=== PATIENT | female | born 1935 | race Caucasian/White ===

== ENCOUNTER 2020-05-24 15:26 | Inpatient (IN) ==
[2020-05-24] MEDS ORDERED: methylPREDNISolone SOD SUC 125 MG/2 ML VIAL IV STA (16:22)
[2020-05-24] MEDS ORDERED: ONDANSETRON 4 MG/2 ML VIAL IV STA (16:22)
[2020-05-24] MEDS ORDERED: FUROSEMIDE 40 MG/4 ML VIAL IV STA (16:22)
[2020-05-24] MEDS ORDERED: PIPERACILLIN/TAZOBACTAM 3,375 MG in SODIUM CHLORIDE 0.9% 100 ML IV STA (16:22)
[2020-05-24 17:09] LABS: Basophils % 0.5 % (0.0-0.8); Eosinophils # 0.1 10*3/uL (0.0-0.87); Eosinophils % 0.7 % (0.00-10.9); Hematocrit 26.8 VOL% (35.7-47.0); Immature Granulocytes % 0.6 %; Immature Granulocytes Absolute 0.05 #; Lymphocytes # 1.1 10*3/uL (1.4-4.0); Lymphocytes % 13.2 % (21.3-54.2); Mean Corpuscular HGB Conc 27.2 GM/DL (32-36); Mean Corpuscular Volume 76.4 FL (87-102); Mean Platelet Volume 10.4 FL (9.6-12.0); Monocytes % 6.5 % (1.7-12.7); Neutrophils % 78.5 % (38.7-73.9); Platelet Count 344 T/CUMM (130-400); Red Blood Count 3.51 MC/CUMM (3.8-5.5); Red Cell Distribution Width 17.4 % (9.3-17.3); White Blood Count 8.5 T/CUMM (4-12)
[2020-05-24 17:12] LABS: Bacteria,Urine Occasional /HPF (Few); Bilirubin,Urine Negative (Negative); Blood, Urine Negative (Negative); Glucose,Urine (UA) Negative (Negative); Ketones,Urine 5 mg/dL (Negative); Mucus,Urine Occasional /LPF (Occasional); Nitrite,Urine Negative (Negative); Protein,Urine Negative; RBC,Urine 3 /HPF (0-4); Squamous Epithelial Cell,Urine Occasional /HPF (0-10); Urine Appearance CLEAR (Clear); Urine Color Yellow (Yellow); Urine Specific Gravity 1.025 (1.001-1.035); WBC,Urine 1 /HPF (0-6)
[2020-05-24 17:18] LABS: Hemoglobin 7.3 GM/DL (12.0-16.0)
[2020-05-24 17:19] LABS: PT Patient Result 10.5 SECS (9.8-11.9)
[2020-05-24 17:53] LABS: Albumin 2.9 G/DL (3.4-5.0); Bilirubin,Total 0.4 MG/DL (0.2-1.0); Calcium 7.8 MG/DL (8.5-10.1); Osmolality,Calculated 275.7 MOS/KG (273-304); Potassium 3.3 MMOL/L (3.5-5.1); Total Protein 5.8 G/DL (6.4-8.3)
[2020-05-24] MEDS ORDERED: DEXTROSE 50% 25 GM/50 ML VIAL IV PRN (19:56)
[2020-05-24] MEDS ORDERED: GLUCAGON 1 MG VIAL IM PRN (19:56)
[2020-05-24] MEDS ORDERED: POTASSIUM CHLORIDE 20 MEQ/15 ML UDCUP PO ONE (20:03)
[2020-05-24 20:55] LABS: ABG Base Excess 16.3 MMOL/L (-2.5-2.5); ABG HCO3 40.2 MMOL/L (20-26); ABG Oxygen Saturation 95.7 % (95-100); ABG PCO2 62.1 MM HG (35-48); ABG PH 7.447 (7.35-7.45); ABG PO2 81.9 MM HG (80-95); Allen Test Positive
[2020-05-25] MEDS: PIPERACILLIN/TAZOBACTAM 3,375 MG in SODIUM CHLORIDE 0.9% 100 ML IV SCH ×2 (01:09→11:00)
[2020-05-25 06:31] LABS: % Iron Saturation 2.6 % (18-50); Albumin 2.9 G/DL (3.4-5.0); Bilirubin,Total 0.4 MG/DL (0.2-1.0); Calcium 7.9 MG/DL (8.5-10.1); Ferritin 7.4 ng/ml (8-252); Potassium 3.4 MMOL/L (3.5-5.1); Risk Ratio 1.61; Thyroid Stimulating Hormone 0.186 uIU/ml (0.358-3.74); Total Protein 6.2 G/DL (6.4-8.3); VLDL CHOLESTEROL 11.8 MG/DL
[2020-05-25 07:33] LABS: Basophils % 0.2 % (0.0-0.8); Hematocrit 29.7 VOL% (35.7-47.0); Hemoglobin 7.6 GM/DL (12.0-16.0); Immature Granulocytes % 0.8 %; Immature Granulocytes Absolute 0.04 #; Lymphocytes # 0.9 10*3/uL (1.4-4.0); Lymphocytes % 18.6 % (21.3-54.2); Mean Corpuscular HGB Conc 25.6 GM/DL (32-36); Mean Corpuscular Volume 80.3 FL (87-102); Mean Platelet Volume 11.6 FL (9.6-12.0); Monocytes % 2.9 % (1.7-12.7); Neutrophils % 77.5 % (38.7-73.9); Platelet Count 350 T/CUMM (130-400); Red Cell Distribution Width 17.4 % (9.3-17.3); White Blood Count 4.9 T/CUMM (4-12)
[2020-05-25 07:41] LABS: Hypochromasia 2+; Microcytosis 1+; Platelet Estimate Adequate
[2020-05-25] MEDS ORDERED: amLODIPine 5 MG TABLET PO SCH (09:00)
[2020-05-25] MEDS ORDERED: PANTOPRAZOLE 40 MG VIAL IV SCH (09:00)
[2020-05-25 10:15] LABS: Folate 10.8 NG/ML (5.4-24.0)
[2020-05-25] MEDS: FUROSEMIDE 40 MG/4 ML VIAL IV SCH ×2 (10:56→15:41)
[2020-05-25] MEDS: ONDANSETRON 4 MG/2 ML VIAL IV PRN ×2 (11:12→18:24)
[2020-05-25] MEDS: CITALOPRAM 20 MG TABLET PO SCH (22:02)
[2020-05-25] MEDS: PANTOPRAZOLE 40 MG VIAL IV SCH (22:02)
[2020-05-26] MEDS: PANTOPRAZOLE 40 MG VIAL IV SCH ×2 (10:23→20:43)
[2020-05-26] MEDS: ONDANSETRON 4 MG/2 ML VIAL IV PRN ×3 (10:25→20:42)
[2020-05-26] MEDS ORDERED: ENOXAPARIN 40 MG/0.4 ML SYRINGE SUBCUT ONE (14:40)
[2020-05-26 16:21] LABS: Hematocrit 27.2 VOL% (35.7-47.0); Hemoglobin 7.1 GM/DL (12.0-16.0)
[2020-05-26] MEDS: CITALOPRAM 20 MG TABLET PO SCH (20:42)
[2020-05-27] MEDS: ACETAMINOPHEN 325 MG TABLET PO PRN ×2 (00:01→17:03)
[2020-05-27] MEDS: ONDANSETRON 4 MG/2 ML VIAL IV PRN ×4 (06:35→20:51)
[2020-05-27 07:19] LABS: Calcium 7.5 MG/DL (8.5-10.1); Potassium 3.6 MMOL/L (3.5-5.1)
[2020-05-27 07:24] LABS: Basophils # 0.1 10*3/uL (0.0-0.2); Basophils % 0.8 % (0.0-0.8); Eosinophils # 0.1 10*3/uL (0.0-0.87); Eosinophils % 2.1 % (0.00-10.9); Hematocrit 27.5 VOL% (35.7-47.0); Immature Granulocytes % 0.3 %; Immature Granulocytes Absolute 0.02 #; Lymphocytes # 1.1 10*3/uL (1.4-4.0); Lymphocytes % 17.6 % (21.3-54.2); Mean Corpuscular HGB Conc 25.5 GM/DL (32-36); Mean Corpuscular Volume 81.8 FL (87-102); Mean Platelet Volume 10.6 FL (9.6-12.0); Monocytes % 9.5 % (1.7-12.7); Neutrophils % 69.7 % (38.7-73.9); Osmolality,Calculated 284.3 MOS/KG (273-304); Platelet Count 296 T/CUMM (130-400); Red Blood Count 3.36 MC/CUMM (3.8-5.5); Red Cell Distribution Width 17.2 % (9.3-17.3); White Blood Count 6.3 T/CUMM (4-12)
[2020-05-27 07:26] LABS: Hypochromasia 2+; Microcytosis 1+; Ovalocytes Slight; Platelet Estimate Adequate
[2020-05-27] MEDS: LACTATED RINGERS 1,000 ML IV SCH ×2 (08:42→08:43)
[2020-05-27] MEDS ORDERED: ALBUTEROL/IPRATROPIUM 3 ML NEB RESP TX ONE (08:42)
[2020-05-27] MEDS: PANTOPRAZOLE 40 MG VIAL IV SCH ×2 (08:43→20:50)
[2020-05-27] MEDS: IPRATROPIUM 500 MCG/2.5 ML NEB RESP TX SCH ×2 (15:05→19:04)
[2020-05-27] MEDS: CITALOPRAM 20 MG TABLET PO SCH (20:50)
[2020-05-28] MEDS ORDERED: DIAZEPAM 2 MG TABLET PO ONE (07:00)
[2020-05-28] MEDS: IPRATROPIUM 500 MCG/2.5 ML NEB RESP TX SCH ×4 (07:45→19:39)
[2020-05-28] MEDS ORDERED: LACTATED RINGERS 1,000 ML IV SCH (08:00)
[2020-05-28] MEDS: PANTOPRAZOLE 40 MG VIAL IV SCH ×2 (09:15→20:48)
[2020-05-28 11:27] LABS: Basophils # 0.1 10*3/uL (0.0-0.2); Basophils % 0.9 % (0.0-0.8); Eosinophils # 0.1 10*3/uL (0.0-0.87); Eosinophils % 1.6 % (0.00-10.9); Hematocrit 27.4 VOL% (35.7-47.0); Immature Granulocytes % 0.5 %; Immature Granulocytes Absolute 0.03 #; Lymphocytes # 0.8 10*3/uL (1.4-4.0); Lymphocytes % 13.4 % (21.3-54.2); Mean Corpuscular HGB Conc 25.5 GM/DL (32-36); Mean Corpuscular Volume 80.6 FL (87-102); Mean Platelet Volume 10.7 FL (9.6-12.0); Monocytes % 6.8 % (1.7-12.7); NRBC # 0.04 10*3/uL; Neutrophils % 76.8 % (38.7-73.9); Platelet Count 245 T/CUMM (130-400); Red Cell Distribution Width 17.2 % (9.3-17.3); White Blood Count 5.6 T/CUMM (4-12)
[2020-05-28 11:34] LABS: Hypochromasia 2+; Microcytosis 1+; Ovalocytes Slight; Platelet Estimate Adequate
[2020-05-28] MEDS: ONDANSETRON 4 MG/2 ML VIAL IV PRN ×2 (16:26→21:09)
[2020-05-28] MEDS ORDERED: SODIUM CHLORIDE 0.9% 1,000 ML IV PRN ×2 (16:38→17:20)
[2020-05-28] MEDS: CITALOPRAM 20 MG TABLET PO SCH (20:47)
[2020-05-29] MEDS: ONDANSETRON 4 MG/2 ML VIAL IV PRN ×3 (05:41→21:33)
[2020-05-29 06:30] LABS: Calcium 8.2 MG/DL (8.5-10.1); Potassium 3.9 MMOL/L (3.5-5.1)
[2020-05-29 06:47] LABS: Basophils # 0.1 10*3/uL (0.0-0.2); Basophils % 1.2 % (0.0-0.8); Eosinophils # 0.2 10*3/uL (0.0-0.87); Eosinophils % 1.9 % (0.00-10.9); Hematocrit 39.9 VOL% (35.7-47.0); Immature Granulocytes % 0.3 %; Immature Granulocytes Absolute 0.02 #; Lymphocytes # 1.6 10*3/uL (1.4-4.0); Lymphocytes % 19.8 % (21.3-54.2); Mean Corpuscular HGB Conc 27.1 GM/DL (32-36); Mean Corpuscular Volume 85.1 FL (87-102); Mean Platelet Volume 10.3 FL (9.6-12.0); Monocytes % 9.7 % (1.7-12.7); Neutrophils % 67.1 % (38.7-73.9); Platelet Count 309 T/CUMM (130-400); Red Blood Count 4.69 MC/CUMM (3.8-5.5); Red Cell Distribution Width 16.7 % (9.3-17.3); White Blood Count 7.8 T/CUMM (4-12)
[2020-05-29 06:53] LABS: Hemoglobin 10.8 GM/DL (12.0-16.0)
[2020-05-29 06:57] LABS: Eosinophils 3 % (0-10); Hypochromasia 1+; Lymphocytes 11 % (20-55); Microcytosis 1+; Platelet Estimate Adequate; Segmented Neutrophils 73 % (50-85); Total Cells Counted 100
[2020-05-29] MEDS: IPRATROPIUM 500 MCG/2.5 ML NEB RESP TX SCH ×3 (07:22→19:56)
[2020-05-29] MEDS: PANTOPRAZOLE 40 MG VIAL IV SCH ×2 (09:59→20:50)
[2020-05-29] MEDS: LACTATED RINGERS 1,000 ML IV SCH (16:44)
[2020-05-29] MEDS ORDERED: hydrALAZINE 20 MG/1 ML VIAL IV PRN (17:23)
[2020-05-29] MEDS: ACETAMINOPHEN 325 MG TABLET PO PRN (19:01)
[2020-05-29] MEDS: CITALOPRAM 20 MG TABLET PO SCH (20:50)
[2020-05-30 05:37] LABS: Calcium 7.8 MG/DL (8.5-10.1); Potassium 3.3 MMOL/L (3.5-5.1)
[2020-05-30 06:12] LABS: Basophils # 0.1 10*3/uL (0.0-0.2); Eosinophils # 0.1 10*3/uL (0.0-0.87); Eosinophils % 2.7 % (0.00-10.9); Immature Granulocytes % 0.4 %; Immature Granulocytes Absolute 0.02 #; Lymphocytes # 0.8 10*3/uL (1.4-4.0); Lymphocytes % 15.6 % (21.3-54.2); Mean Corpuscular HGB Conc 28.6 GM/DL (32-36); Mean Corpuscular Volume 82.7 FL (87-102); Mean Platelet Volume 11.1 FL (9.6-12.0); Monocytes % 11.3 % (1.7-12.7); Platelet Count 238 T/CUMM (130-400); Red Blood Count 4.23 MC/CUMM (3.8-5.5); Red Cell Distribution Width 17.5 % (9.3-17.3)
[2020-05-30 06:23] LABS: White Blood Count 5.2 T/CUMM (4-12)
[2020-05-30 06:40] LABS: Hypochromasia 1+
[2020-05-30 06:41] LABS: Anisocytosis 1+; Microcytosis 1+; Ovalocytes Few; Polychromasia Slight; Target Cells Slight
[2020-05-30 06:42] LABS: Platelet Estimate Normal
[2020-05-30] MEDS: IPRATROPIUM 500 MCG/2.5 ML NEB RESP TX SCH ×3 (07:49→19:24)
[2020-05-30] MEDS: LACTATED RINGERS 1,000 ML IV SCH (08:29)
[2020-05-30] MEDS: ONDANSETRON 4 MG/2 ML VIAL IV PRN ×4 (08:30→20:48)
[2020-05-30] MEDS: PANTOPRAZOLE 40 MG VIAL IV SCH ×2 (08:31→20:45)
[2020-05-30] MEDS: FUROSEMIDE 40 MG/4 ML VIAL IV SCH (11:06)
[2020-05-30] MEDS ORDERED: POTASSIUM CHLORIDE 20 MEQ TABLET PO ONE (11:27)
[2020-05-30] MEDS: ACETAMINOPHEN 325 MG TABLET PO PRN ×2 (15:24→21:13)
[2020-05-30] MEDS: CITALOPRAM 20 MG TABLET PO SCH (20:44)
[2020-05-31 06:33] LABS: Calcium 7.7 MG/DL (8.5-10.1); Osmolality,Calculated 276.5 MOS/KG (273-304); Potassium 3.1 MMOL/L (3.5-5.1)
[2020-05-31 06:42] LABS: Basophils % 0.8 % (0.0-0.8); Eosinophils # 0.1 10*3/uL (0.0-0.87); Eosinophils % 2.1 % (0.00-10.9); Hematocrit 35.1 VOL% (35.7-47.0); Immature Granulocytes % 0.4 %; Immature Granulocytes Absolute 0.02 #; Lymphocytes # 0.8 10*3/uL (1.4-4.0); Lymphocytes % 14.4 % (21.3-54.2); Mean Corpuscular HGB Conc 29.1 GM/DL (32-36); Mean Corpuscular Volume 81.3 FL (87-102); Mean Platelet Volume 11.8 FL (9.6-12.0); Neutrophils % 73.3 % (38.7-73.9); Platelet Count 233 T/CUMM (130-400); Red Blood Count 4.32 MC/CUMM (3.8-5.5); White Blood Count 5.3 T/CUMM (4-12)
[2020-05-31 06:44] LABS: Hemoglobin 10.2 GM/DL (12.0-16.0)
[2020-05-31] MEDS: IPRATROPIUM 500 MCG/2.5 ML NEB RESP TX SCH ×3 (07:51→18:56)
[2020-05-31] MEDS: FUROSEMIDE 40 MG/4 ML VIAL IV SCH (09:18)
[2020-05-31] MEDS: PANTOPRAZOLE 40 MG VIAL IV SCH ×2 (09:18→20:11)
[2020-05-31] MEDS: ONDANSETRON 4 MG/2 ML VIAL IV PRN ×4 (09:24→22:01)
[2020-05-31 10:58] LABS: Folate 10.5 NG/ML (5.38-24.0)
[2020-05-31] MEDS: POTASSIUM CHLORIDE 20 MEQ TABLET PO SCH (11:33)
[2020-05-31] MEDS ORDERED: POTASSIUM CHLORIDE 20 MEQ/15 ML UDCUP PO ONE (12:25)
[2020-05-31] MEDS: ACETAMINOPHEN 325 MG TABLET PO PRN (20:11)
[2020-05-31] MEDS: CITALOPRAM 20 MG TABLET PO SCH (20:11)
[2020-06-01 06:17] LABS: Calcium 7.7 MG/DL (8.5-10.1); Osmolality,Calculated 280.4 MOS/KG (273-304); Potassium 3.6 MMOL/L (3.5-5.1)
[2020-06-01 06:37] LABS: Basophils # 0.1 10*3/uL (0.0-0.2); Basophils % 0.7 % (0.0-0.8); Eosinophils # 0.1 10*3/uL (0.0-0.87); Eosinophils % 1.3 % (0.00-10.9); Hematocrit 35.9 VOL% (35.7-47.0); Hemoglobin 9.7 GM/DL (12.0-16.0); Immature Granulocytes % 0.4 %; Immature Granulocytes Absolute 0.03 #; Lymphocytes % 14.7 % (21.3-54.2); Mean Corpuscular Volume 85.5 FL (87-102); Monocytes % 8.6 % (1.7-12.7); Neutrophils % 74.3 % (38.7-73.9); Platelet Count 254 T/CUMM (130-400); Red Cell Distribution Width 18.4 % (9.3-17.3)
[2020-06-01 06:40] LABS: White Blood Count 6.9 T/CUMM (4-12)
[2020-06-01 06:50] LABS: Hypochromasia 1+; Microcytosis 1+; Platelet Estimate Adequate
[2020-06-01] MEDS: IPRATROPIUM 500 MCG/2.5 ML NEB RESP TX SCH ×4 (07:17→19:35)
[2020-06-01] MEDS: POTASSIUM CHLORIDE 20 MEQ TABLET PO SCH (08:46)
[2020-06-01] MEDS: ONDANSETRON 4 MG/2 ML VIAL IV PRN ×3 (08:46→22:46)
[2020-06-01] MEDS: FUROSEMIDE 40 MG/4 ML VIAL IV SCH (08:48)
[2020-06-01] MEDS: PANTOPRAZOLE 40 MG VIAL IV SCH ×2 (08:49→21:16)
[2020-06-01] MEDS ORDERED: PROMETHAZINE INJ 12.5 MG in SODIUM CHLORIDE 0.9% 50 ML IV PRN (11:19)
[2020-06-01] MEDS: PROMETHAZINE 25 MG/1 ML VIAL IM PRN (11:41)
[2020-06-01] MEDS: ACETAMINOPHEN 325 MG TABLET PO PRN ×2 (15:54→21:16)
[2020-06-01] MEDS: CITALOPRAM 20 MG TABLET PO SCH (21:15)
[2020-06-02] MEDS: PROMETHAZINE 25 MG/1 ML VIAL IM PRN (00:02)
[2020-06-02 06:05] LABS: Calcium 7.4 MG/DL (8.5-10.1)
[2020-06-02 06:13] LABS: Potassium 3.5 MMOL/L (3.5-5.1)
[2020-06-02 06:20] LABS: Basophils # 0.1 10*3/uL (0.0-0.2); Basophils % 0.9 % (0.0-0.8); Eosinophils # 0.2 10*3/uL (0.0-0.87); Eosinophils % 2.1 % (0.00-10.9); Hematocrit 32.6 VOL% (35.7-47.0); Immature Granulocytes % 0.4 %; Immature Granulocytes Absolute 0.03 #; Lymphocytes % 14.3 % (21.3-54.2); Mean Corpuscular HGB Conc 28.5 GM/DL (32-36); Mean Corpuscular Volume 81.9 FL (87-102); Mean Platelet Volume 11.2 FL (9.6-12.0); Monocytes % 8.9 % (1.7-12.7); Neutrophils % 73.4 % (38.7-73.9); Platelet Count 219 T/CUMM (130-400); Red Blood Count 3.98 MC/CUMM (3.8-5.5); Red Cell Distribution Width 18.6 % (9.3-17.3); White Blood Count 7.1 T/CUMM (4-12)
[2020-06-02 06:21] LABS: Hemoglobin 9.3 GM/DL (12.0-16.0)
[2020-06-02 06:43] LABS: Hypochromasia 1+; Microcytosis 1+; Platelet Estimate Adequate
[2020-06-02] MEDS: IPRATROPIUM 500 MCG/2.5 ML NEB RESP TX SCH ×2 (07:50→13:30)
[2020-06-02] MEDS ORDERED: LACTATED RINGERS 1,000 ML IV SCH (08:00)
[2020-06-02] MEDS: ONDANSETRON 4 MG/2 ML VIAL IV PRN ×2 (08:54→14:04)
[2020-06-02] MEDS: POTASSIUM CHLORIDE 20 MEQ TABLET PO SCH (08:55)
[2020-06-02] MEDS: PANTOPRAZOLE 40 MG VIAL IV SCH (08:55)
[2020-06-02] MEDS ORDERED: LIDOCAINE 2% 5 ML VIAL ONE (09:56)
[2020-06-02] MEDS ORDERED: propofoL 200 MG/20 ML VIAL IV ONE (09:57)
[2020-06-02] MEDS ORDERED: ETOMIDATE 20 MG/10 ML VIAL IV ONE (09:57)
[2020-06-02 13:43] VITALS: BP 114/64
[2020-06-02] MEDS: ACETAMINOPHEN 325 MG TABLET PO PRN (14:03)
[2020-06-02] MEDS ORDERED: SUCRALFATE 1 GM/10 ML UDCUP PO SCH (16:30)
== END 2020-06-02 15:24 | disposition home health service (06) | DRG 291 ==
LOC: N.EDINP 15:26 → N.ED 15:26 → SUATTDRO 19:55 → N.EDINP 22:01 → N.TELEN 23:03
PROVIDERS: ADMIT Internal Medicine; ATTEND Internal Medicine

== ENCOUNTER 2020-07-29 19:37 | Inpatient (IN) ==
[2020-07-29 21:51] LABS: Alanine Aminotransferase 23 U/L (13-56); Albumin 2.1 G/DL (3.4-5.0); Alkaline Phosphatase 153 U/L (45-117); Aspartate Amino Transferase 29 U/L (0-37); Bilirubin,Total < 0.39 MG/DL (0.2-1.0); Blood Urea Nitrogen 23 MG/DL (7-18); Calcium 7.4 MG/DL (8.5-10.1); Carbon Dioxide 32 MMOL/L (21-32); Estimated Glom Filtration Rate 79 ML/MIN; Glucose 96 MG/DL (74-106); Osmolality,Calculated 286.1 MOS/KG (273-304); Potassium 3.6 MMOL/L (3.5-5.1); Sodium 142 MMOL/L (136-145); Total Protein 4.9 G/DL (6.4-8.2)
[2020-07-29 21:53] LABS: Basophils # 0.1 10*3/uL (0.0-0.2); Basophils % 0.8 % (0.0-0.8); Eosinophils % 0.3 % (0.00-10.9); Hematocrit 33.4 VOL% (35.7-47.0); Hemoglobin 9.8 GM/DL (12.0-16.0); Immature Granulocytes % 0.5 %; Immature Granulocytes Absolute 0.04 #; Lymphocytes # 1.1 10*3/uL (1.4-4.0); Lymphocytes % 14.9 % (21.3-54.2); Mean Corpuscular HGB Conc 29.3 GM/DL (32-36); Mean Corpuscular Volume 91.5 FL (87-102); Mean Platelet Volume 9.8 FL (9.6-12.0); Monocytes % 6.6 % (1.7-12.7); Neutrophils % 76.9 % (38.7-73.9); Platelet Count 444 T/CUMM (130-400); Red Blood Count 3.65 MC/CUMM (3.8-5.5); Red Cell Distribution Width 17.5 % (9.3-17.3); Troponin I 0.021 NG/ML (0.00-0.045); White Blood Count 7.7 T/CUMM (4-12)
[2020-07-29 21:59] LABS: PT Patient Result 10.3 SECS (9.8-11.9)
[2020-07-29 22:17] LABS: Bilirubin,Urine Negative (Negative); Blood, Urine Negative (Negative); Glucose,Urine (UA) Negative (Negative); Hyaline Casts,Urine 100 /LPF (0-3); Ketones,Urine Negative (Negative); Mucus,Urine Few /LPF (Occasional); Nitrite,Urine Negative (Negative); Protein,Urine Negative; RBC,Urine <1 /HPF (0-4); Squamous Epithelial Cell,Urine Occasional /HPF (0-10); Urine Appearance CLEAR (Clear); Urine Color Yellow (Yellow); Urine Specific Gravity 1.029 (1.001-1.035); Urine Urobilinogen < 2.0 EU/DL (0.2-1.0); WBC,Urine 1 /HPF (0-6)
[2020-07-29] MEDS ORDERED: APIXABAN 5 MG TABLET PO STA (22:34)
[2020-07-30] MEDS ORDERED: DOCUSATE SODIUM 100 MG CAPSULE PO PRN (02:31)
[2020-07-30] MEDS ORDERED: ALBUTEROL/IPRATROPIUM 3 ML NEB RESP TX PRN ×2 (02:31→02:55)
[2020-07-30] MEDS ORDERED: DEXTROSE 50% 25 GM/50 ML VIAL IV PRN (02:31)
[2020-07-30] MEDS ORDERED: GLUCAGON 1 MG VIAL IM PRN (02:31)
[2020-07-30] MEDS ORDERED: ONDANSETRON 4 MG/2 ML VIAL IV PRN (02:31)
[2020-07-30] MEDS ORDERED: ACETAMINOPHEN 325 MG TABLET PO PRN (02:31)
[2020-07-30] MEDS ORDERED: hydrALAZINE 20 MG/1 ML VIAL IV PRN (02:31)
[2020-07-30] MEDS ORDERED: oxyCODONE IR 5 MG TABLET PO PRN (02:43)
[2020-07-30] MEDS ORDERED: NITROGLYCERIN SL 0.4 MG TABLET SL PRN (02:43)
[2020-07-30] MEDS ORDERED: CETIRIZINE 10 MG TABLET PO PRN (02:43)
[2020-07-30] MEDS ORDERED: MAGNESIUM SULF RIDER 2 GM in PREMIX 1 EACH IV PRN (03:06)
[2020-07-30] MEDS ORDERED: MAGNESIUM SULF RIDER 4 GM in PREMIX 1 EACH IV PRN (03:06)
[2020-07-30 06:16] LABS: Calcium 7.5 MG/DL (8.5-10.1); Osmolality,Calculated 288.8 MOS/KG (273-304); Potassium 3.1 MMOL/L (3.5-5.1)
[2020-07-30 07:10] LABS: Basophils % 0.5 % (0.0-0.8); Eosinophils % 0.4 % (0.00-10.9); Hematocrit 33.5 VOL% (35.7-47.0); Hemoglobin 9.9 GM/DL (12.0-16.0); Immature Granulocytes % 0.4 %; Immature Granulocytes Absolute 0.03 #; Lymphocytes # 1.2 10*3/uL (1.4-4.0); Lymphocytes % 16.2 % (21.3-54.2); Mean Corpuscular HGB Conc 29.6 GM/DL (32-36); Mean Corpuscular Volume 91.8 FL (87-102); Mean Platelet Volume 10.1 FL (9.6-12.0); Monocytes % 6.4 % (1.7-12.7); Neutrophils % 76.1 % (38.7-73.9); Platelet Count 450 T/CUMM (130-400); Red Blood Count 3.65 MC/CUMM (3.8-5.5); Red Cell Distribution Width 17.6 % (9.3-17.3); White Blood Count 7.3 T/CUMM (4-12)
[2020-07-30] MEDS ORDERED: APIXABAN 5 MG TABLET PO SCH (09:00)
[2020-07-30] MEDS: FUROSEMIDE 20 MG/2 ML VIAL IV SCH ×2 (10:21→16:22)
[2020-07-30] MEDS: POTASSIUM CHLORIDE 10 MEQ TABLET PO SCH (10:21)
[2020-07-30] MEDS: traMADol 50 MG TABLET PO SCH ×2 (10:22→21:26)
[2020-07-30] MEDS: PANTOPRAZOLE 40 MG TABLET PO SCH ×2 (10:22→21:25)
[2020-07-30] MEDS: CITALOPRAM 20 MG TABLET PO SCH (21:25)
[2020-07-30] MEDS: amLODIPine 5 MG TABLET PO SCH (21:26)
[2020-07-31 04:15] LABS: Basophils % 0.4 % (0.0-0.8); Eosinophils % 0.3 % (0.00-10.9); Hematocrit 30.9 VOL% (35.7-47.0); Immature Granulocytes % 0.5 %; Immature Granulocytes Absolute 0.06 #; Lymphocytes % 8.5 % (21.3-54.2); Mean Corpuscular HGB Conc 29.1 GM/DL (32-36); Mean Corpuscular Volume 91.4 FL (87-102); Neutrophils % 85.3 % (38.7-73.9); Platelet Count 365 T/CUMM (130-400); Red Blood Count 3.38 MC/CUMM (3.8-5.5); Red Cell Distribution Width 17.4 % (9.3-17.3); White Blood Count 11.4 T/CUMM (4-12)
[2020-07-31 04:42] LABS: Calcium 7.4 MG/DL (8.5-10.1); Osmolality,Calculated 287.8 MOS/KG (273-304); Potassium 2.9 MMOL/L (3.5-5.1)
[2020-07-31] MEDS: POTASSIUM CHLORIDE 10 MEQ TABLET PO SCH (09:24)
[2020-07-31] MEDS: traMADol 50 MG TABLET PO SCH ×2 (09:24→21:13)
[2020-07-31] MEDS: PANTOPRAZOLE 40 MG TABLET PO SCH ×2 (09:24→21:14)
[2020-07-31] MEDS: FUROSEMIDE 20 MG/2 ML VIAL IV SCH ×2 (09:25→15:24)
[2020-07-31] MEDS: POTASSIUM CHLORIDE 20 MEQ TABLET PO PRN ×3 (18:18→23:16)
[2020-07-31] MEDS: amLODIPine 5 MG TABLET PO SCH (21:14)
[2020-07-31] MEDS: CITALOPRAM 20 MG TABLET PO SCH (21:14)
[2020-08-01] MEDS: POTASSIUM CHLORIDE 20 MEQ TABLET PO PRN (01:05)
[2020-08-01 06:44] LABS: Calcium 7.6 MG/DL (8.5-10.1); Osmolality,Calculated 282.1 MOS/KG (273-304); Potassium 4.2 MMOL/L (3.5-5.1)
[2020-08-01 06:55] LABS: Basophils % 0.3 % (0.0-0.8); Eosinophils % 0.3 % (0.00-10.9); Hematocrit 32.3 VOL% (35.7-47.0); Hemoglobin 9.3 GM/DL (12.0-16.0); Immature Granulocytes % 0.7 %; Immature Granulocytes Absolute 0.08 #; Lymphocytes # 1.4 10*3/uL (1.4-4.0); Lymphocytes % 12.6 % (21.3-54.2); Mean Corpuscular HGB Conc 28.8 GM/DL (32-36); Mean Corpuscular Volume 92.6 FL (87-102); Mean Platelet Volume 10.1 FL (9.6-12.0); Monocytes % 5.1 % (1.7-12.7); Platelet Count 301 T/CUMM (130-400); Red Blood Count 3.49 MC/CUMM (3.8-5.5); Red Cell Distribution Width 17.6 % (9.3-17.3); White Blood Count 11.2 T/CUMM (4-12)
[2020-08-01 07:19] LABS: Lymphocytes 13 % (20-55); Segmented Neutrophils 87 % (50-85); Total Cells Counted 100
[2020-08-01 07:20] LABS: Macrocytosis Slight; Microcytosis Slight; Ovalocytes Slight; Polychromasia Slight
[2020-08-01 07:21] LABS: Platelet Estimate Adequate
[2020-08-01] MEDS: traMADol 50 MG TABLET PO SCH ×2 (08:38→21:25)
[2020-08-01] MEDS: FUROSEMIDE 20 MG/2 ML VIAL IV SCH ×2 (08:38→16:49)
[2020-08-01] MEDS: PANTOPRAZOLE 40 MG TABLET PO SCH ×2 (08:38→21:25)
[2020-08-01] MEDS: POTASSIUM CHLORIDE 10 MEQ TABLET PO SCH (08:39)
[2020-08-01] MEDS: CITALOPRAM 20 MG TABLET PO SCH (21:25)
[2020-08-01] MEDS: amLODIPine 5 MG TABLET PO SCH (21:25)
[2020-08-02 06:36] LABS: Calcium 7.6 MG/DL (8.5-10.1); Osmolality,Calculated 283.1 MOS/KG (273-304); Potassium 3.8 MMOL/L (3.5-5.1)
[2020-08-02] MEDS: PANTOPRAZOLE 40 MG TABLET PO SCH ×2 (08:57→21:03)
[2020-08-02] MEDS: traMADol 50 MG TABLET PO SCH ×2 (08:57→21:03)
[2020-08-02] MEDS: FUROSEMIDE 20 MG/2 ML VIAL IV SCH ×2 (08:57→17:22)
[2020-08-02] MEDS: POTASSIUM CHLORIDE 10 MEQ TABLET PO SCH (08:57)
[2020-08-02] MEDS: amLODIPine 5 MG TABLET PO SCH (21:03)
[2020-08-02] MEDS: CITALOPRAM 20 MG TABLET PO SCH (21:03)
[2020-08-03 06:24] LABS: Calcium 7.9 MG/DL (8.5-10.1); Osmolality,Calculated 275.7 MOS/KG (273-304); Potassium 3.7 MMOL/L (3.5-5.1)
[2020-08-03] MEDS: POTASSIUM CHLORIDE 10 MEQ TABLET PO SCH (09:42)
[2020-08-03] MEDS: PANTOPRAZOLE 40 MG TABLET PO SCH (09:42)
[2020-08-03] MEDS: traMADol 50 MG TABLET PO SCH (09:43)
[2020-08-03] MEDS: FUROSEMIDE 20 MG/2 ML VIAL IV SCH ×2 (09:48→15:09)
[2020-08-03 11:17] VITALS: BP 141/76
[2020-08-06] MEDS ORDERED: APIXABAN 5 MG TABLET PO SCH (09:00)
== END 2020-08-03 15:40 | disposition home health service (06) | DRG 306 ==
LOC: EDUNIT# → EDBD → N.ED 19:37 → N.EDINP 19:37 → N.3E 07-30 03:10 → SUATTDRO 07-31 16:41
PROVIDERS: ADMIT Internal Medicine; ATTEND Internal Medicine Geriatric Medicine